=== PATIENT | male | born 1945 | race Caucasian/White ===

== ENCOUNTER → 2016-10-06 | Outpatient (CLI) | payer MEDICARE ==
[~2016-10-06] MED LIST: ACETAMINOPHEN PO; ALBUTEROL17 GM INH; ASPIRINEC PO; ATARAX PO; BACTRIM DS TABL1 TA1 PO; BENZONATATE PO; CELLCEPT500 MG PO; COUMADIN PO; FIBERCON625 MG PO; FLONASE16 GM; KEFLEX250 M1 PO; LORTAB 5/500 TA1 TA1 PO; MEDROL4 MG/DOSE- PO; NEPHROCAPS CAPSU1 MG PO; NORCO 10-325 TA1 TAB PO; PROGRAF1 MG PO; PROTONIX PO; SYNTHROID PO; ZOVIRAX15 GM TP; ZOVIRAX400 MG PO; [UNRECOGNIZED DRUG - OTHER]
[2016-10-06 11:04] LABS: CALCIUM SERUM 8.3 mg/dL (8.4-10.2); GLOM FILT RATE Estimated 76.5 mL/min (>60); POTASSIUM 3.7 mmol/L (3.5-5.1)
[2016-10-12 07:43] LABS: CALCIUM (PTHINTACT) 8.4 mg/dL (8.6-10.3)
== END | disposition home or self-care (01) ==
LOC: CLAB 10:10
PROVIDERS: Internal Medicine Nephrology
DX: Z48.22 Encounter for aftercare following kidney transplant (principal); Z94.0 Kidney transplant status
CPT/HCPCS: 36415; 80048; 82306; 82310; 83970; 84100